=== PATIENT | female | born 1965 | race Caucasian/White ===

== ENCOUNTER 2018-05-14 09:52 | Outpatient (CLI) | payer OTHER ==
[~2018-05-14 09:52] MED LIST: TAPAZOLE10 MG PO
== END 2018-05-14 09:54 | disposition home or self-care (01) ==
LOC: LAB 09:52
DX: N39.0 Urinary tract infection, site not specified (principal); E78.4 Other hyperlipidemia; E55.9 Vitamin D deficiency, unspecified; E07.89 Other specified disorders of thyroid

== ENCOUNTER → 2018-05-22 | Outpatient (CLI) | payer OTHER | END | disposition home or self-care (01) | LOC: SONOGRAMA 12:01 | DX: E07.9 Disorder of thyroid, unspecified (principal) ==

== ENCOUNTER 2018-09-10 09:34 | Outpatient (CLI) | payer OTHER | END 2018-09-10 09:37 | disposition home or self-care (01) | LOC: MAMO-SONO 09:34 | DX: Z12.39 Encounter for other screening for malignant neoplasm of breast (principal); Z12.31 Encounter for screening mammogram for malignant neoplasm of breast ==

== ENCOUNTER 2018-09-10 10:48 | Outpatient (CLI) | payer OTHER | END 2018-09-10 10:53 | disposition home or self-care (01) | LOC: LAB 10:48 | DX: Z12.39 Encounter for other screening for malignant neoplasm of breast (principal); Z12.11 Encounter for screening for malignant neoplasm of colon; R30.0 Dysuria; M54.5 Low back pain; E78.49 Other hyperlipidemia ==

== ENCOUNTER 2018-09-12 11:20 | Outpatient (CLI) | payer OTHER | END 2018-09-12 11:29 | disposition home or self-care (01) | LOC: LAB 11:20 | DX: Z12.39 Encounter for other screening for malignant neoplasm of breast (principal); Z12.11 Encounter for screening for malignant neoplasm of colon ==

== ENCOUNTER 2018-09-26 14:06 | Outpatient (CLI) | payer OTHER | END 2018-09-26 14:08 | disposition home or self-care (01) | LOC: SONOGRAMA 14:06 | DX: N64.89 Other specified disorders of breast (principal) ==

== ENCOUNTER 2019-01-15 09:12 | Outpatient (CLI) | payer OTHER | END 2019-01-15 11:41 | disposition home or self-care (01) | LOC: LAB 09:12 | DX: N39.0 Urinary tract infection, site not specified (principal) ==

== ENCOUNTER → 2019-01-22 11:39 | Outpatient (CLI) | payer OTHER | END | disposition home or self-care (01) | LOC: LAB 11:39 | DX: N39.0 Urinary tract infection, site not specified (principal) ==

== ENCOUNTER 2019-01-23 11:49 | Emergency (ER) | payer OTHER ==
[~2019-01-23] VITALS: Ht 160 cm; Wt 83.9 kg
== END 2019-01-23 16:15 | disposition home or self-care (01) ==
LOC: ER 11:49
DX: K29.70 Gastritis, unspecified, without bleeding (principal); T47.1X5A Adverse effect of other antacids and anti-gastric-secretion drugs, initial encounter

== ENCOUNTER 2019-09-15 10:20 | Outpatient (CLI) | payer OTHER | END 2019-09-15 10:28 | disposition home or self-care (01) | LOC: SONOGRAMA 10:20 | DX: N60.11 Diffuse cystic mastopathy of right breast (principal); N60.12 Diffuse cystic mastopathy of left breast ==

== ENCOUNTER 2019-09-18 14:05 | Outpatient (CLI) | payer OTHER | END 2019-09-18 14:14 | disposition home or self-care (01) | LOC: MAMO-SONO 14:05 | DX: Z12.31 Encounter for screening mammogram for malignant neoplasm of breast (principal); Z87.898 Personal history of other specified conditions; N60.11 Diffuse cystic mastopathy of right breast; N60.12 Diffuse cystic mastopathy of left breast ==

== ENCOUNTER 2019-12-01 08:46 | Outpatient (CLI) | payer OTHER | END 2019-12-01 09:15 | disposition home or self-care (01) | LOC: LAB 08:46 | DX: N39.0 Urinary tract infection, site not specified (principal); B96.29 Other Escherichia coli [E. coli] as the cause of diseases classified elsewhere; M54.5 Low back pain; R10.2 Pelvic and perineal pain ==

== ENCOUNTER → 2020-03-27 08:44 | Outpatient (CLI) | payer OTHER | END | disposition home or self-care (01) | LOC: LAB 08:44 | PROVIDERS: ATTEND General Practice | DX: R42 Dizziness and giddiness (principal); R51 Headache; Z13.220 Encounter for screening for lipoid disorders; Z13.89 Encounter for screening for other disorder; Z11.3 Encounter for screening for infections with a predominantly sexual mode of transmission; Z13.1 Encounter for screening for diabetes mellitus; N39.0 Urinary tract infection, site not specified; E07.89 Other specified disorders of thyroid; Z12.11 Encounter for screening for malignant neoplasm of colon; Z11.4 Encounter for screening for human immunodeficiency virus [HIV] ==

== ENCOUNTER 2020-03-31 07:48 | Outpatient (CLI) | payer OTHER | END 2020-03-31 07:56 | disposition home or self-care (01) | LOC: LAB 07:48 | PROVIDERS: ATTEND General Practice | DX: R42 Dizziness and giddiness (principal); R51 Headache; Z13.220 Encounter for screening for lipoid disorders; Z13.89 Encounter for screening for other disorder; Z11.3 Encounter for screening for infections with a predominantly sexual mode of transmission; Z13.1 Encounter for screening for diabetes mellitus; N39.0 Urinary tract infection, site not specified; E07.89 Other specified disorders of thyroid; Z12.11 Encounter for screening for malignant neoplasm of colon ==

== ENCOUNTER 2020-03-31 09:13 | Outpatient (CLI) | payer OTHER | END 2020-03-31 09:41 | disposition home or self-care (01) | LOC: MAMO-SONO 09:13 | PROVIDERS: ATTEND General Practice | DX: Z12.31 Encounter for screening mammogram for malignant neoplasm of breast (principal); R42 Dizziness and giddiness; R51 Headache; Z12.11 Encounter for screening for malignant neoplasm of colon; N64.89 Other specified disorders of breast; Z12.39 Encounter for other screening for malignant neoplasm of breast ==

== ENCOUNTER 2022-02-22 09:10 | Outpatient (CLI) | payer OTHER | END 2022-02-22 09:34 | disposition home or self-care (01) | LOC: LAB 09:10 | PROVIDERS: ATTEND General Practice | DX: R30.0 Dysuria (principal); M54.50 Low back pain, unspecified; Z13.21 Encounter for screening for nutritional disorder; Z13.39 Encounter for screening examination for other mental health and behavioral disorders; Z12.11 Encounter for screening for malignant neoplasm of colon; Z13.220 Encounter for screening for lipoid disorders; Z13.228 Encounter for screening for other metabolic disorders; Z13.1 Encounter for screening for diabetes mellitus; Z13.89 Encounter for screening for other disorder; Z11.3 Encounter for screening for infections with a predominantly sexual mode of transmission ==

== ENCOUNTER 2022-02-22 09:53 | Outpatient (CLI) | payer OTHER | END 2022-02-22 10:08 | disposition home or self-care (01) | LOC: MAMO-SONO 09:53 | PROVIDERS: ATTEND General Practice | DX: R30.0 Dysuria (principal); M54.50 Low back pain, unspecified; Z12.39 Encounter for other screening for malignant neoplasm of breast; Z12.31 Encounter for screening mammogram for malignant neoplasm of breast ==

== ENCOUNTER 2022-05-31 08:21 | Outpatient (CLI) | payer OTHER | END 2022-05-31 13:32 | disposition home or self-care (01) | LOC: MRI 08:21 | PROVIDERS: ATTEND General Practice | DX: M54.50 Low back pain, unspecified (principal); M54.32 Sciatica, left side | CPT/HCPCS: 72148 ==

== ENCOUNTER 2024-09-11 10:02 | Outpatient (CLI) | payer OTHER | END 2024-09-11 10:19 | disposition home or self-care (01) | LOC: MAMO-SONO 10:02 | PROVIDERS: ATTEND General Practice | DX: N64.9 Disorder of breast, unspecified (principal); G89.11 Acute pain due to trauma; M25.572 Pain in left ankle and joints of left foot; R60.0 Localized edema ==

== ENCOUNTER 2024-10-09 10:59 | Outpatient (CLI) | payer OTHER | END 2024-10-09 11:08 | disposition home or self-care (01) | LOC: SONOGRAMA 10:59 | PROVIDERS: ATTEND General Practice | DX: R10.9 Unspecified abdominal pain (principal); R31.29 Other microscopic hematuria; R60.0 Localized edema; M25.572 Pain in left ankle and joints of left foot ==